=== PATIENT | male | born 1995 | race Caucasian/White ===

== ENCOUNTER 2018-08-09 19:26 | Emergency (ER) | payer MEDICAID ==
[~2018-08-09] VITALS: Ht 180.3 cm; Wt 81.7 kg
[2018-08-09 19:30] VITALS: Ht 180.3 cm; Wt 81.7 kg
[2018-08-09 20:42] VITALS: BP 111/68
== END 2018-08-09 20:42 | disposition home or self-care (01) ==
LOC: ED 19:26
DX: K02.9 Dental caries, unspecified (principal); K05.10 Chronic gingivitis, plaque induced; R51 Headache; R50.9 Fever, unspecified
CPT/HCPCS: 87804; J1885